=== PATIENT | female | born 1955 | race Caucasian/White ===

== ENCOUNTER 2017-07-11 23:31 | Inpatient (IN) | payer OTHER ==
[~2017-07-11] VITALS: Ht 152.4 cm; Wt 82.6 kg
[~2017-07-11 23:31] MED LIST: GLIP10TA3 PO; HYDR-4446 PO; IBUP400T99 PO; LANTUS SUBQ; LEVO0.074 PO; METF100028 PO; PANT40PK PO; PRAV20TA2 PO; RANI-287 PO
--- NOTE | 2017-07-11 23:31 | NUR ---
Patient was BIBA and taken to bed 03 via gurney per EMS.
[2017-07-11 23:39] VITALS: BP 152/74
[2017-07-11] MEDS ORDERED: NACL 0.9% 500 ML IV ONE ×2 (23:40)
[2017-07-11] MEDS ORDERED: IBUPROFEN 800 MG TAB ONE (23:53)
[2017-07-11] MEDS ORDERED: ACETAMINOPHEN EXTRA STRENGTH 500 MG TAB ONE (23:54)
[2017-07-11] MEDS ORDERED: ASPI81CT89 PO (23:59)
[2017-07-11] MEDS ORDERED: OMEP20TC24 PO (23:59)
[2017-07-11] MEDS ORDERED: MELO7.5T11 PO (23:59)
[2017-07-11] MEDS ORDERED: LORA10TA19 PO (23:59)
[2017-07-11] MEDS ORDERED: VITD1000 PO (23:59)
[2017-07-11] MEDS ORDERED: VAS5 PO (23:59)
--- NOTE | 2017-07-12 00:04 | NUR ---
Dr. Huff evaluating patient at bedside.
--- NOTE | 2017-07-12 00:05 | NUR ---
PATIENT PRESENTS TO ED BIBA C/O LEFT ARM PAIN THAT IS SHARP. PT DENIES ANY TRAUMA TO THE ARM. PT DENIES N/V/D; SKIN IS PINK/WARM/DRY; AAOX4 WITH EVEN AND STEADY GAIT; LUNGS CLEAR BL; HR EVEN AND REGULAR; PT DENIES ANY FEVER, CP, SOB, OR COUGH AT THIS TIME; PATIENT STATES PAIN OF 7/10 AT THIS TIME; VSS; PATIENT POSITIONED FOR COMFORT; HOB ELEVATED; BEDRAILS UP X2; BED DOWN. ER MD MADE AWARE OF PT STATUS.
[2017-07-12] MEDS ORDERED: fentaNYL 0.05 MG/ML VIAL IVP ONE (00:35)
[2017-07-12 00:38] LABS: HEMATOCRIT 39.1 % (36-48); HEMOGLOBIN 12.8 g/dL (12.0-16.0); MEAN CORPUSCULAR HEMOGLOBIN 29 pg (27-31); MEAN CORPUSCULAR HGB CONC 33 g/dL (33-37); MEAN CORPUSCULAR VOLUME 89 fL (80-94); PLATELET COUNT (AUTO) 182 K/uL (140-450); RED BLOOD CELL COUNT(AUTO) 4.38 MIL/uL (4.20-5.40); RED CELL DISTRIBUTION WIDTH 13.8 % (11.6-13.7); WHITE BLOOD COUNT (AUTO) 12.8 K/uL (4.8-10.8)
[2017-07-12 00:39] LABS: EOSINOPHILS % (MANUAL) 3 % (0-4); LYMPHOCYTES % (MANUAL) 14 % (20-46); MONOCYTES % (MANUAL) 7 % (5-12)
[2017-07-12 00:41] LABS: PROTHROMBIN TIME 10.6 secs (10.8-13.4)
--- NOTE | 2017-07-12 00:41 | NUR ---
Patient was taken to CT via wheelchair per tech.
[2017-07-12 00:49] LABS: ANION GAP 12.7 (8-16); CARBON DIOXIDE 23.2 mmol/L (21-32); CREATININE 1.1 mg/dL (0.6-1.3); POTASSIUM 3.9 mmol/L (3.5-5.1)
[2017-07-12 00:54] LABS: ALBUMIN 3.2 g/dL (3.4-5.0); TOTAL BILIRUBIN 0.5 mg/dL (0.0-1.0)
--- NOTE | 2017-07-12 00:54 | NUR ---
Patient back from CT via wheelchair per tech.
[2017-07-12] MEDS ORDERED: NACL 0.9% 2,000 ML IV ONE (01:05)
[2017-07-12] MEDS ORDERED: LEVOFLOXACIN 500 MG/D5W PREMIX 100 ML IV ONE (01:05)
[2017-07-12 01:10] LABS: APPEARANCE,URINE HAZY (CLEAR); BILIRUBIN,URINE NEGATIVE (NEGATIVE); BLOOD, URINE TRACE-I (NEGATIVE); COLOR,URINE YELLOW (YELLOW); LEUKOCYTE ESTERASE ,URINE 1+ (NEGATIVE); NITRITE, URINE POSITIVE (NEGATIVE); PH,URINE 5.5 (5.0-9.0); UGLUCOSE NEGATIVE (NEGATIVE)
[2017-07-12 01:19] LABS: RBC,URINE 0-5 (RARE) /HPF (0-5); WBC,URINE TOO MANY TO COUNT /HPF (0-5)
--- NOTE | 2017-07-12 02:08 | NUR ---
Patient will be admitted to care of DR PARIS. Admited to Med/Surg. Will go to room 107B. Belongings list completed. Report to VON.
[2017-07-12 02:15] VITALS: BP 104/64
--- NOTE | 2017-07-12 02:15 | NUR ---
ADMITTED A 61F FROM ER. CAME BY LISA, ACCOMPANIED BY GEORGIE, DAUGHTER IN LAW. AWAKE,ALERT AND ORIENTED X4. ARABIC SPEAKING. WITH NO C/O OF ANY DISCOMFORT NOR PAIN NOTED. AFEBRILE 99.3 TEMP. SKIN INTACT. WITH HL ON THE LT AC#20. CLEAR AND PATENT. PLACED COMFORTABLY IN BED. ORIENTED TO HOSPITAL ROUTINES. CALL LIGHT WITHIN EASY REACH, BED TO BE ON LOW POSITION. INSTRUCTED TO CALL FOR ANY ASSISTANCE. VERBALIZED UNDERSTANDING. PT ON MS. WILL HAVE TO CALL MD FOR ADMIT ORDERS.
--- NOTE | 2017-07-12 02:30 | NUR ---
CHECKED IN ON PT, PT RESTING COMFORTABLY IN BED. NO S/S OF DISTRESS NOTED. ALL SAFETY PRECAUTIONS MET, CALL LIGHT WITHIN REACH WILL CONTINUE TO MONITOR. Addendum: 07/13/17 at 0127 by Aydee Bragg RN WRONG TIME: 07/12/17 @ 0151
[2017-07-12] MEDS ORDERED: HYDROcodone/APAP 5/325 MG 1 TAB TAB PO PRN (02:55)
[2017-07-12] MEDS ORDERED: ACETAMINOPHEN 325 MG TAB PO PRN (02:55)
[2017-07-12] MEDS ORDERED: DEXTROSE 50% 50 ML SYR IVP PRN (02:55)
--- NOTE | 2017-07-12 02:58 | NUR ---
PAGED DR. Haseeb PARIS. ABLE TO TALKED TO HIM ON HIS CELL PHONE GAVE ADMIT WITH ORDERS.
[2017-07-12] MEDS: NACL 0.9% 1,000 ML IV SCH ×2 (04:06→16:15)
--- NOTE | 2017-07-12 04:06 | NUR ---
IVF NS @75 ML PER STARTED ON THE LT FA#20. INFUSING WELL.
[2017-07-12] MEDS: BLOOD GLUCOSE MONITORING 1 DEV DEV FS SCH ×5 (06:41→21:36)
--- NOTE | 2017-07-12 06:41 | NUR ---
BLOOD SUGAR THUS WAS CHECKED RESULT 140. NO COVERAGE NEEDED.
[2017-07-12 06:43] LABS: HEMATOCRIT 37.4 % (36-48); HEMOGLOBIN 12.5 g/dL (12.0-16.0); MEAN CORPUSCULAR HEMOGLOBIN 30 pg (27-31); MEAN CORPUSCULAR HGB CONC 33 g/dL (33-37); MEAN CORPUSCULAR VOLUME 89 fL (80-94); PLATELET COUNT (AUTO) 181 K/uL (140-450); RED BLOOD CELL COUNT(AUTO) 4.19 MIL/uL (4.20-5.40); RED CELL DISTRIBUTION WIDTH 13.9 % (11.6-13.7); WHITE BLOOD COUNT (AUTO) 13.6 K/uL (4.8-10.8)
[2017-07-12 07:14] LABS: ANION GAP 11.7 (8-16); CARBON DIOXIDE 22.1 mmol/L (21-32); POTASSIUM 3.8 mmol/L (3.5-5.1)
--- NOTE | 2017-07-12 07:14 | NUR ---
PATIENT HAS BEEN SCREENED AND CATEGORIZED MODERATE NUTRITION RISK. PATIENT WILL BE SEEN WITHIN 3-5 DAYS OF ADMISSION. 07/14/17-07/16/17 BOBO JUSTIN MS, RDN
--- NOTE | 2017-07-12 07:20 | NUR ---
ENDORSED PT IN STABLE CONDITION TO AM NURSE.
--- NOTE | 2017-07-12 07:25 | NUR ---
RECEIVED PATIENT REPORT FROM NIGHT NURSE AT BEDSIDE. PATIENT IS THAI SPEAKING, AAOX4 AND SHOWS NO S/S OF ACUTE DISTRESS ON ROOM AIR. PATIENT STATED HEADACHE OF 3/10. WILL MEDICATE WITH TYLENOL 650 MG PO. PATIENT SKIN IS INTACT. IV NOTED ON THE LEFT FA WITH IVF'S INFUSING WELL. PATIENT WAS EXPLAINED HOW TO USE THE CALL LIGHT FOR ASSISTANCE AND POC FOR TODAY. PATIENT VERBALIZED UNDERSTANDING. THE BED IS LOWERED WITH CALL LIGHT WITHIN REACH. WILL CONTINUE TO MONITOR.
[2017-07-12 07:53] LABS: BASOPHILS % (MANUAL) 0 % (0-2); EOSINOPHILS % (MANUAL) 1 % (0-4); LYMPHOCYTES % (MANUAL) 12 % (20-46); MONOCYTES % (MANUAL) 5 % (5-12)
[2017-07-12 08:00] VITALS: BP 117/52
--- NOTE | 2017-07-12 08:15 | NUR ---
ADMINISTERED TYLENOL 650 MG PO FOR HEADACHE. WILL REASSESS PAIN.
--- NOTE | 2017-07-12 09:15 | NUR ---
PATIENT DENIES PAIN AND SOB. PATIENT SHOWS NO S/S OF ACUTE DISTRESS ON ROOM AIR. THE BED IS LOWERED WITH CALL LIGHT WITHIN REACH.
--- NOTE | 2017-07-12 11:00 | NUR ---
PATIENT IS TAKING SHOWER. PATIENT AMB BACK TO ROOM AND SHOWS NO S/S OF ACUTE DISTRESS.
--- NOTE | 2017-07-12 11:45 | NUR ---
PATIENT HAS VISITORS AT BEDSIDE. PATIENT SHOWS NO S/S OF ACUTE DISTRESS ON ROOM AIR. WILL CONTINUE TO MONITOR.
--- NOTE | 2017-07-12 14:45 | NUR ---
PATIENT IS SLEEPING AND SHOWS NO S/S OF ACUTE DISTRESS. THE BED IS LOWERED WITH CALL LIGHT WITHIN REACH.
[2017-07-12 16:00] VITALS: BP 113/62
--- NOTE | 2017-07-12 16:00 | NUR ---
PATIENT HAS FAMILY AT BEDSIDE AND SHOWS NO S/S OF ACUTE DISTRESS ON ROOM AIR, AAOX4 AND DENIES PAIN. THE BED IS LOWERED WITH CALL LIGHT WITHIN REACH.
[2017-07-12] MEDS: INSULIN LISPRO SLIDING SCALE 100 UNITS/ML VIAL SUBQ PRN ×2 (17:43→21:37)
--- NOTE | 2017-07-12 19:15 | NUR ---
GAVE PATIENT REPORT AT BEDSIDE TO NIGHT NURSE. PATIENT ENDORSED IN STABLE CONDITION.
--- NOTE | 2017-07-12 19:16 | NUR ---
RECEIVED REPORT FROM DAY NURSE, PT IN STABLE CONDITION, PT IS AAOX4, PT IS ON RA. IV TO L FA 20 G INFUSING WELL, PATENT AND INTACT. INITIAL ASSESSMENT DONE, PLAN OF CARE DISCUSSED WITH PT AND FAMILY AT THE BEDSIDE, ALL SAFETY PRECAUTIONS MET, CALL LIGHT WITHIN REACH, WILL CONTINUE TO MONITOR.
--- NOTE | 2017-07-12 20:08 | NUR ---
LAB CALLED FOR BLOOD CULTURE RESULT POSITIVE GRAM NEGATIVE DIPLO COCCI . PAGED DR. PARIS, LEFT MESSAGE. WAITING FOR CALL BACK.
--- NOTE | 2017-07-12 20:59 | NUR ---
PAGED EARLIER DR. RUFFIN FOR RESULT. DR. ALLRED CLINICAL NURSING PROFESSOR . CALLED BACK. MADE AWARE OF THE GRAM NEGATIVE DIPLO COCCI RESULT OF BLOOD CULTURE. HE JUST ASKED WHAT ANTIBIOTICS PT HAS. ON LEVAQUIN IVPB. NO NEW ORDER MADE.
[2017-07-12] MEDS ORDERED: LEVOFLOXACIN 250 MG/D5 PREMIX 50 ML IV SCH (21:00)
--- NOTE | 2017-07-12 21:30 | NUR ---
PTS DUE MEDICATIONS GIVEN. PT TOLERATED WELL. ALL SAFETY PRECAUTIONS MET, CALL LIGHT WITHIN REACH. WILL CONTINUE TO MONITOR.
--- NOTE | 2017-07-12 22:20 | NUR ---
LAB CALLED AGAIN @1363 FOR NEW RESULT OF BLOOD CULTURE WHICH IS GRAM NEGATIVE RODS. PAGED DR. ALLRED. CALLED BACK AND MADE AWARE. NO NEW ORDER MADE.
[2017-07-13] VITALS: BP 115/71
--- NOTE | 2017-07-13 00:30 | NUR ---
CHECKED IN ON PT. PTS VITALS ARE STABLE, NO S/S OF DISTRESS NOTED. PT RESTING COMFORTABLY IN BED. ALL SAFETY PRECAUTIONS MET, CALL LIGHT WITHIN REACH, WILL CONTINUE TO MONITOR.
[2017-07-13] MEDS ORDERED: LEVOFLOXACIN 500 MG/D5W PREMIX 100 ML IV SCH (01:00)
--- NOTE | 2017-07-13 01:20 | NUR ---
SEQUENTIAL COMPRESSION DEVICE MACHINE APPLIED TO BOTH LONNY LOWER LEGS. PT MADE AWARE OF THE BENEFITS FROM THE MACHINE. VERBALIZED UNDERSTANDING.
--- NOTE | 2017-07-13 02:30 | NUR ---
CHECKED IN ON PT. PT RESTING COMFORTABLY IN BED. NO S/S OF DISTRESS NOTED. ALL SAFETY PRECAUTIONS MET. CALL LIGHT WITHIN REACH, WILL CONTINUE TO MONITOR.
--- NOTE | 2017-07-13 04:30 | NUR ---
CHECKED IN ON PT, PT RESTING COMFORTABLY IN BED NO S/S OF DISTRESS NOTED. ALL SAFETY PRECAUTIONS MET, CALL LIGHT WITHIN REACH, WILL CONTINUE TO MONITOR.
[2017-07-13] MEDS: NACL 0.9% 1,000 ML IV SCH (05:35)
[2017-07-13 06:09] LABS: BASOPHILS # (AUTO) 0.3 K/uL (0.00-0.22); BASOPHILS % (AUTO) 3.6 % (0.0-2.0); EOSINOPHILS # (AUTO) 0.3 K/uL (0-0.4); EOSINOPHILS % (AUTO) 2.8 % (0.0-4.0); HEMATOCRIT 38.4 % (36-48); HEMOGLOBIN 12.8 g/dL (12.0-16.0); LYMPHOCYTES # (AUTO) 2.6 K/uL (2.5-16.5); LYMPHOCYTES % (AUTO) 27.9 % (20.5-51.1); MEAN CORPUSCULAR HEMOGLOBIN 30 pg (27-31); MEAN CORPUSCULAR HGB CONC 33 g/dL (33-37); MEAN CORPUSCULAR VOLUME 90 fL (80-94); MONOCYTES # (AUTO) 1.1 K/uL (0.8-1.0); MONOCYTES % (AUTO) 11.8 % (1.7-9.3); NEUTROPHILS # (AUTO) 5.1 K/uL (1.8-7.7); NEUTROPHILS % (AUTO) 53.9 % (42.2-75.2); PLATELET COUNT (AUTO) 179 K/uL (140-450); RED BLOOD CELL COUNT(AUTO) 4.27 MIL/uL (4.20-5.40)
[2017-07-13] MEDS: BLOOD GLUCOSE MONITORING 1 DEV DEV FS SCH (06:17)
[2017-07-13] MEDS: INSULIN LISPRO SLIDING SCALE 100 UNITS/ML VIAL SUBQ PRN (06:27)
--- NOTE | 2017-07-13 06:39 | NUR ---
CHECKED IN ON PT, PT RESTING COMFORTABLY IN BED NO S/S OF DISTRESS NOTED. ALL SAFETY PRECAUTIONS MET, CALL LIGHT WITHIN REACH, WILL CONTINUE TO MONITOR.
--- NOTE | 2017-07-13 07:30 | NUR ---
RECEIVED PATIENT REPORT AT BEDSIDE. PATIENT AWAKE, ALERT AND ORIENTED. NO S/S OF DISTRESS NOTED. DENIES PAIN. BED LOWERED WITH CALL LIGHT WITHIN REACH. WILL CONTINUE TO MONITOR
--- NOTE | 2017-07-13 07:30 | NUR ---
ENDORSED PLAN OF CARE TO AM NURSE FOR CONTINUITY OF CARE, PT IN STABLE CONDITION, NO S/S OF DISTRESS NOTED.
[2017-07-13 07:59] LABS: WHITE BLOOD COUNT (AUTO) 9.4 K/uL (4.8-10.8)
[2017-07-13 08:00] VITALS: BP 135/69
[2017-07-13] MEDS ORDERED: CLINICAL MONITORING MC SCH (09:00)
[2017-07-13] MEDS ORDERED: LEVO750T2 PO (10:29)
[2017-07-13 10:33] LABS: ANION GAP 11.1 (8-16); CARBON DIOXIDE 25.1 mmol/L (21-32); CREATININE 0.9 mg/dL (0.6-1.3); POTASSIUM 4.2 mmol/L (3.5-5.1)
--- NOTE | 2017-07-13 10:49 | NUR ---
PATIENT DISCHARGED TO HOME. DISCHARGE PRESCRIPTION AND DISCHARGE INSTRUCTIONS GIVEN. PATIENT VERBALIZED UNDERSTANDING. IV LINE DISCONTINUED. PATIENT LEFT WITH ALL HER DISCHARGE PAPERS AND BELONGINGS. PATIENT LEFT IN STABLE CONDITION
--- NOTE | 2017-07-14 07:19 | NUR ---
RETRO REVIEW FAXED TO [facility] [phone] PHONE [phone] SEB
== END 2017-07-13 10:47 | disposition home or self-care (01) | DRG 720 ==
LOC: MED 23:31 → MTU 07-12 03:06
PROVIDERS: ADMIT Internal Medicine Nephrology; ATTEND Internal Medicine Nephrology
DX: A41.51 Sepsis due to Escherichia coli [E. coli] (principal); E87.8 Other disorders of electrolyte and fluid balance, not elsewhere classified; I10 Essential (primary) hypertension; N39.0 Urinary tract infection, site not specified; E11.9 Type 2 diabetes mellitus without complications; E66.9 Obesity, unspecified; Z68.35 Body mass index [BMI] 35.0-35.9, adult; E03.9 Hypothyroidism, unspecified; K21.9 Gastro-esophageal reflux disease without esophagitis
CPT/HCPCS: 36415; 70450; 71010; 72125; 80048; 80053; 81001; 82948; 83605; 83880; 84443; 84484; 85025; 85610; 85730; 87040; 87081; 87086; 87186; 93005; 96361; 96365; 96375; 99285; J1956; J3010; J7030

== ENCOUNTER 2023-02-22 22:19 | Inpatient (IN) | payer OTHER ==
[~2023-02-22] VITALS: Ht 149.9 cm; Wt 85.3 kg
[~2023-02-22 22:19] MED LIST changes: +AMOX-1000 PO; +BACL10TA4 PO; +CHOL100084 PO; +ENAL5TAB48 PO; +FOLI1TAB90 PO; +FOS70 PO; +GABA300C PO; -GLIP10TA3 PO; -HYDR-4446 PO; -IBUP400T99 PO; -LANTUS SUBQ; -LEVO0.074 PO; +LEVO0.114 PO; +LIP80 PO; +MELO7.5T11 PO; +METF-1274 PO; +MEX2.5 PO; -PANT40PK PO; -PRAV20TA2 PO; -RANI-287 PO; +SITA25TA3 PO; +TRAM-748 PO
[2023-02-22 22:32] VITALS: BP 122/63
[2023-02-22 23:09] LABS: APPEARANCE,URINE CLEAR (CLEAR); BILIRUBIN,URINE NEGATIVE (NEGATIVE); BLOOD, URINE 1+ (NEGATIVE); COLOR,URINE YELLOW (YELLOW); LEUKOCYTE ESTERASE ,URINE 2+ (NEGATIVE); NITRITE, URINE POSITIVE (NEGATIVE); UGLUCOSE NEGATIVE (NEGATIVE)
[2023-02-22 23:33] LABS: RBC,URINE 0-5 /HPF (0-5); WBC,URINE TOO MANY TO COUNT /HPF (0-5)
--- NOTE | 2023-02-22 23:36 | NUR ---
LONI ollected and sent to lab
--- NOTE | 2023-02-22 23:49 | NUR ---
pt to bed #7
[2023-02-23] MEDS ORDERED: NACL 0.9% 2,000 ML IV ONE (00:20)
[2023-02-23] MEDS ORDERED: cefTRIAXone 1,000 MG VIAL ONE (00:40)
[2023-02-23 00:47] LABS: BASOPHILS % (AUTO) 0.2 % (0.0-2.0); EOSINOPHILS # (AUTO) 0.1 K/uL (0-0.4); EOSINOPHILS % (AUTO) 0.4 % (0.0-4.0); HEMATOCRIT 36.7 % (36-48); HEMOGLOBIN 12.4 g/dL (12.0-16.0); LYMPHOCYTES # (AUTO) 2.9 K/uL (2.5-16.5); LYMPHOCYTES % (AUTO) 21.9 % (20.5-51.1); MEAN CORPUSCULAR HEMOGLOBIN 32 pg (27-31); MEAN CORPUSCULAR HGB CONC 34 g/dL (33-37); MEAN CORPUSCULAR VOLUME 93.6 fL (80-94); MONOCYTES % (AUTO) 15.2 % (1.7-9.3); NEUTROPHILS # (AUTO) 8.3 K/uL (1.8-7.7); NEUTROPHILS % (AUTO) 62.3 % (42.2-75.2); PLATELET COUNT (AUTO) 168 K/uL (140-450); RED BLOOD CELL COUNT(AUTO) 3.92 MIL/uL (4.20-5.40); RED CELL DISTRIBUTION WIDTH 14.5 % (11.6-13.7); WHITE BLOOD COUNT (AUTO) 13.3 K/uL (4.8-10.8)
--- NOTE | 2023-02-23 01:02 | NUR ---
Patient received on bed lying comfortably and awake. Alert and awake x4. No acute distress. No complaints of pain or discomfort. Respirations even and unlabored.
[2023-02-23 01:13] LABS: ALBUMIN 2.9 g/dL (3.4-5.0); ANION GAP 11.2 (8-16); CARBON DIOXIDE 26.3 mmol/L (21-32); CREATININE 1.3 mg/dL (0.6-1.3); POTASSIUM 3.5 mmol/L (3.5-5.1); TOTAL BILIRUBIN 0.9 mg/dL (0.0-1.0)
[2023-02-23] MEDS ORDERED: CEPH-588 PO (01:27)
[2023-02-23] MEDS ORDERED: ACET-10509 PO (01:27)
[2023-02-23] MEDS ORDERED: MORPHINE SULFATE 2 MG/ML SYR IVP STA (01:59)
--- NOTE | 2023-02-23 02:19 | NUR ---
Patient taken to CT scan via WC.
--- NOTE | 2023-02-23 03:27 | NUR ---
PT TAKEN TO BED 1
[2023-02-23] MEDS: NACL 0.9% 1,000 ML IV SCH ×3 (03:37→22:43)
--- NOTE | 2023-02-23 05:15 | NUR ---
Called daughter's number to obtain information on patient's medications, no answer. Family's phone number in facesheet is patient's cell phone number.
[2023-02-23] MEDS ORDERED: ACETAMINOPHEN 325 MG TAB ONE (06:23)
[2023-02-23] MEDS ORDERED: ACETAMINOPHEN 325 MG TAB PO ONE (06:25)
--- NOTE | 2023-02-23 07:36 | NUR ---
PT CALM AND RESTING.
--- NOTE | 2023-02-23 07:50 | NUR ---
Patient will be admitted to care of DR MORAES. Admited to TELE. Will go to [id number]. Belongings list completed. Report to MIGUEL SONI.
--- NOTE | 2023-02-23 08:00 | NUR ---
RECEIVED PATIENT FROM ED. PATIENT SEEN AWAKE ALERT AND BREATHING EQUAL CHEST EXPANSION. PLAN OF CARE STARTED.
[2023-02-23] MEDS ORDERED: guaiFENesin DM 200/20 MG-10 ML 10 ML UDC PO PRN (08:20)
[2023-02-23] MEDS ORDERED: ONDANSETRON 4 MG/2 ML VIAL IM/IVP PRN (08:20)
[2023-02-23] MEDS ORDERED: ACETAMINOPHEN 325 MG TAB PO PRN (08:20)
[2023-02-23] MEDS ORDERED: HYDROcodone/APAP 7.5/325 MG 1 TAB PO PRN (08:20)
[2023-02-23] MEDS ORDERED: ZOLPIDEM 5 MG TAB PO PRN (08:20)
[2023-02-23] MEDS ORDERED: DOCUSATE SODIUM 100 MG GELCAP PO PRN (08:20)
[2023-02-23] MEDS ORDERED: POTASSIUM CHLORIDE 10 MEQ TABER PO PRN (08:20)
[2023-02-23] MEDS: PANTOPRAZOLE 40 MG TABEC PO SCH (09:16)
--- NOTE | 2023-02-23 09:50 | NUR ---
SAW PT WAS ON OXYGEN AND DID AN ASSESSMENT. PT IS ON 2L NC HR 100 SPO2 97%. PT STATED WITHOUT THE OXYGEN SHE FEELS SOB. PT STATED SHE HAS ASTHMA BUT DOESN'T TAKE ANY TREATMENTS AT HOME. PT DID SAY SHE WEARS A CPAP AT HOME WITH A PRESSURE OF 10 WHILE SLEEPING. SONI LEO WAS TRANSLATING UPPER SORBIAN FOR ME WHILE QUESTIONS WERE ASKED. WILL CONTINUE TO MONITOR PT AND REACH OUT TO DR ABOUT CPAP MACHINE FOR NIGHT TIME.
[2023-02-23 09:55] LABS: CHOL/HDL RATIO 1.6 (1-4.5); FREE T4 (FREE THYROXINE) 1.17 ng/dL (0.76-1.46); MAGNESIUM 1.6 mg/dL (1.8-2.4); PHOSPHORUS 2.1 mg/dL (2.5-4.9); THYROID STIMULATING HORMONE 0.24 uIU/mL (0.34-3.74)
[2023-02-23 10:10] LABS: PROTHROMBIN TIME 11.6 secs (10.8-13.4)
--- NOTE | 2023-02-23 10:50 | NUR ---
PATIENT HAS BEEN SCREENED AND CATEGORIZED MODERATE NUTRITION RISK. PATIENT WILL BE SEEN WITHIN 3-5 DAYS OF ADMISSION. [facility] REFERRAL RECEIVED ON 02/23/23. REFERRAL DOES NOT MEET HIGH RISK CRITERIA PER HOSPITAL POLICY. PT WILL BE SEEN AND ASSESSED ACCORDING TO THE NUTRITION CARE POLICY. REVIEWED BY [address]
[2023-02-23 12:00] VITALS: BP 123/46
--- NOTE | 2023-02-23 14:00 | NUR ---
PATIENT NPO FOR LUNCH. ULTRASOUND OF LIVER ABDOMEN DONE.
[2023-02-23 16:00] VITALS: BP 103/49
--- NOTE | 2023-02-23 19:20 | NUR ---
ENDORED TO PM NURSE FOR CONTINUATION OF CARE.
--- NOTE | 2023-02-23 19:25 | NUR ---
RECEIVED PT FROM AM NURSE FOR CONTINUITY OF CARE. PT IS STABLE
[2023-02-23] MEDS ORDERED: MAGNESIUM OXIDE 400 MG TAB PO SCH (19:30)
[2023-02-23 20:00] VITALS: BP 121/61
--- NOTE | 2023-02-23 23:23 | NUR ---
PT TOOK OFF CPAP AND DOES NOT WANT TO WEAR IT ANYMORE. SPO2 98% HR 105 NO SOB OR RESP DISTRESS NOTED
[2023-02-24] VITALS: BP 127/67
[2023-02-24 04:00] VITALS: BP 116/64
--- NOTE | 2023-02-24 07:15 | NUR ---
ENDORSED PT TO AM NURSE FOR CONTINUITY OF CARE. PT IS STABLE
[2023-02-24 07:37] LABS: BASOPHILS # (AUTO) 0.1 K/uL (0.00-0.22); BASOPHILS % (AUTO) 0.4 % (0.0-2.0); EOSINOPHILS # (AUTO) 0.1 K/uL (0-0.4); EOSINOPHILS % (AUTO) 0.7 % (0.0-4.0); HEMATOCRIT 35.5 % (36-48); HEMOGLOBIN 11.8 g/dL (12.0-16.0); LYMPHOCYTES # (AUTO) 3.4 K/uL (2.5-16.5); LYMPHOCYTES % (AUTO) 26.1 % (20.5-51.1); MEAN CORPUSCULAR HEMOGLOBIN 31 pg (27-31); MEAN CORPUSCULAR HGB CONC 33 g/dL (33-37); MEAN CORPUSCULAR VOLUME 93.9 fL (80-94); MONOCYTES # (AUTO) 2.2 K/uL (0.8-1.0); MONOCYTES % (AUTO) 17.1 % (1.7-9.3); NEUTROPHILS # (AUTO) 7.3 K/uL (1.8-7.7); NEUTROPHILS % (AUTO) 55.7 % (42.2-75.2); PLATELET COUNT (AUTO) 161 K/uL (140-450); RED BLOOD CELL COUNT(AUTO) 3.78 MIL/uL (4.20-5.40); RED CELL DISTRIBUTION WIDTH 14.6 % (11.6-13.7); WHITE BLOOD COUNT (AUTO) 13.1 K/uL (4.8-10.8)
[2023-02-24 08:00] VITALS: BP 104/53
[2023-02-24 08:05] LABS: ANION GAP 11.3 (8-16); CARBON DIOXIDE 24.3 mmol/L (21-32); CREATININE 1.1 mg/dL (0.6-1.3); POTASSIUM 3.6 mmol/L (3.5-5.1)
[2023-02-24 08:08] LABS: T4 (THYROXINE) 6.1 ug/dL (4.5-12.0)
[2023-02-24] MEDS: PANTOPRAZOLE 40 MG TABEC PO SCH (09:15)
[2023-02-24] MEDS: MAGNESIUM OXIDE 400 MG TAB PO SCH (09:15)
[2023-02-24] MEDS: NACL 0.9% 1,000 ML IV SCH ×2 (09:16→18:18)
[2023-02-24] MEDS ORDERED: MAGNESIUM OXIDE 400 MG TAB PO SCH (10:30)
[2023-02-24] MEDS: SODIUM PHOS / POTASSIUM PHOS 1 PKT PDR PO SCH ×3 (11:06→17:10)
--- NOTE | 2023-02-24 13:41 | NUR ---
RECEIVED REPORT FROM MOLD BLOWER NURSE FOR CONTINUITY OF CARE. PT STABLE AT THIS TIME. Addendum: 02/24/23 at 1345 by Gardenia Villela RN RECEIVED REPORT AT [id number]
[2023-02-24 16:00] VITALS: BP 123/56
--- NOTE | 2023-02-24 19:10 | NUR ---
ENDORSED PT TO DIE CAST DIE MAKER NURSE FOR CONTINUITY OF CARE. PT STABLE AT THIS TIME.
--- NOTE | 2023-02-24 19:30 | NUR ---
RECEIVED REPORT FROM DAY SHIFT NURSE [place] FOR CONTINUITY OF CARE. PATIENT IS A&O X4. PATIENT IS ON RA; BREATHING IS NORMAL WITH SYMMETRICAL RISE AND FALL OF CHEST. IV IS A 20G LFA, RUNNING NS 100. PATIENT IS SITTING UP IN HIGH-[place] POSITION VISITING WITH FAMILY. BED IS IN LOWEST POSITION, WHEELS LOCKED, CALL LIGHT IN PLACE. WILL CONTINUE TO OBSERVE PATIENT.
[2023-02-24 20:00] VITALS: BP 122/50
--- NOTE | 2023-02-25 00:45 | NUR ---
PATIENT FELL ASLEEP BY 2100; BREATHING IS NORMAL WITH SYMMETRICAL RISE AND FALL OF CHEST. PATIENT WOKE UP JUST BEFORE 0030 AND REQUESTED TYLENOL FOR HEADACHE. ADMINISTERED TYLENOL TO PATIENT. MEDICATION ADMINISTERED SUCCESSFULLY WITHOUT ANY ISSUES WITH SWALLOWING. PATIENT CHOSE TO DRINK WATER FROM HER BOTTLED WATER AT BEDSIDE INSTEAD OF HER WATER FROM THE HOSPITAL [facility]. PATIENT THANKED ME AND LAID DOWN TO GO BACK TO SLEEP. BREATHING IS NORMAL WITH SYMMETRICAL RISE AND FALL OF CHEST. IV IS STILL RUNNING. WILL CONTINUE TO OBSERVE PATIENT.
[2023-02-25 04:00] VITALS: BP 123/65
[2023-02-25] MEDS: NACL 0.9% 1,000 ML IV SCH (04:55)
--- NOTE | 2023-02-25 06:00 | NUR ---
PATIENT SLEPT THROUGHOUT THE NIGHT. IV IS STILL RUNNING. BREATHING IS NORMAL WITH SYMMETRICAL RISE AND FALL OF CHEST. WILL CONTINUE TO OBSERVE PATIENT.
[2023-02-25 06:45] LABS: BASOPHILS # (AUTO) 0.1 K/uL (0.00-0.22); BASOPHILS % (AUTO) 0.4 % (0.0-2.0); EOSINOPHILS # (AUTO) 0.3 K/uL (0-0.4); EOSINOPHILS % (AUTO) 2.4 % (0.0-4.0); HEMATOCRIT 36.6 % (36-48); HEMOGLOBIN 12.3 g/dL (12.0-16.0); LYMPHOCYTES # (AUTO) 3.5 K/uL (2.5-16.5); MEAN CORPUSCULAR HEMOGLOBIN 32 pg (27-31); MEAN CORPUSCULAR HGB CONC 34 g/dL (33-37); MEAN CORPUSCULAR VOLUME 93.8 fL (80-94); MONOCYTES % (AUTO) 17.9 % (1.7-9.3); NEUTROPHILS # (AUTO) 5.4 K/uL (1.8-7.7); NEUTROPHILS % (AUTO) 48.3 % (42.2-75.2); PLATELET COUNT (AUTO) 163 K/uL (140-450); RED CELL DISTRIBUTION WIDTH 14.5 % (11.6-13.7); WHITE BLOOD COUNT (AUTO) 11.3 K/uL (4.8-10.8)
[2023-02-25 07:09] LABS: ANION GAP 11.3 (8-16); CARBON DIOXIDE 24.5 mmol/L (21-32); CREATININE 1.1 mg/dL (0.6-1.3); POTASSIUM 3.8 mmol/L (3.5-5.1)
--- NOTE | 2023-02-25 07:15 | NUR ---
PT WAS SLEEPING, STILL ON CPAP. WILL CONTINUE TO MONITOR.
--- NOTE | 2023-02-25 07:30 | NUR ---
ENDORSED TO DAY SHIFT NURSE [place] FOR CONTINUITY OF CARE. PATIENT IS STABLE.
[2023-02-25 08:00] VITALS: BP 160/76
[2023-02-25] MEDS: PANTOPRAZOLE 40 MG TABEC PO SCH (09:02)
[2023-02-25] MEDS: MAGNESIUM OXIDE 400 MG TAB PO SCH (09:02)
[2023-02-25] MEDS: SODIUM PHOS / POTASSIUM PHOS 1 PKT PDR PO SCH ×2 (09:02→13:00)
[2023-02-25] MEDS ORDERED: SYN.05 PO (09:22)
[2023-02-25] MEDS ORDERED: CEPH-588 PO (09:22)
[2023-02-25 11:42] VITALS: BP 160/76
--- NOTE | 2023-02-25 13:11 | NUR ---
RECEIVED REPORT FROM MARKETING CONSULTANT NURSE FOR CONTINUITY OF CARE. PT STABLE AT THIS TIME. Addendum: 02/25/23 at 1312 by Gardenia Villela RN RECEIVED REPORT AT [phone]
== END 2023-02-25 13:10 | disposition home or self-care (01) | DRG 872 ==
LOC: MED 22:19 → MTU 02-23 02:57
PROVIDERS: ADMIT Family Medicine; ATTEND Family Medicine
DX: A41.9 Sepsis, unspecified organism (principal); N39.0 Urinary tract infection, site not specified; E44.0 Moderate protein-calorie malnutrition; E03.9 Hypothyroidism, unspecified; N18.9 Chronic kidney disease, unspecified; Z20.822 Contact with and (suspected) exposure to COVID-19; R74.01 Elevation of levels of liver transaminase levels; E83.42 Hypomagnesemia; E78.5 Hyperlipidemia, unspecified; E83.39 Other disorders of phosphorus metabolism; E11.40 Type 2 diabetes mellitus with diabetic neuropathy, unspecified; E11.22 Type 2 diabetes mellitus with diabetic chronic kidney disease; I12.9 Hypertensive chronic kidney disease with stage 1 through stage 4 chronic kidney disease, or unspecified chronic kidney disease; Z79.4 Long term (current) use of insulin; Z68.38 Body mass index [BMI] 38.0-38.9, adult
CPT/HCPCS: 36415; 76705; 80048; 80053; 81001; 82150; 83036; 83605; 83690; 83735; 83880; 84100; 84436; 84439; 84443; 84479; 85025; 85610; 85730; 87040; 87081; 87086; 94660; 96365; 96375; 99285; J0696; J2270; J7060; Q0092

== ENCOUNTER 2023-09-26 18:52 | Inpatient (IN) | payer OTHER ==
[~2023-09-26] VITALS: Ht 142.2 cm; Wt 82.6 kg
[~2023-09-26 18:52] MED LIST changes: +ACET-10509 PO; -AMOX-1000 PO; +CEPH-588 PO; -LEVO0.114 PO; -METF100028 PO; +SYN.05 PO
[2023-09-26 19:10] VITALS: BP 146/83; PULSE 122; RESP 20; TEMP 101.9; O2SAT 96
[2023-09-26] MEDS ORDERED: NACL 0.9% 2,000 ML IV ONE (19:25)
[2023-09-26 20:30] LABS: BASOPHILS # (AUTO) 0.1 K/uL (0.00-0.22); BASOPHILS % (AUTO) 0.8 % (0.0-2.0); EOSINOPHILS # (AUTO) 0.1 K/uL (0-0.4); EOSINOPHILS % (AUTO) 0.9 % (0.0-4.0); HEMATOCRIT 36.2 % (36-48); HEMOGLOBIN 12.2 g/dL (12.0-16.0); LYMPHOCYTES # (AUTO) 2.9 K/uL (2.5-16.5); LYMPHOCYTES % (AUTO) 27.6 % (20.5-51.1); MEAN CORPUSCULAR HEMOGLOBIN 32 pg (27-31); MEAN CORPUSCULAR HGB CONC 34 g/dL (33-37); MEAN CORPUSCULAR VOLUME 96.1 fL (80-94); MONOCYTES # (AUTO) 1.6 K/uL (0.8-1.0); MONOCYTES % (AUTO) 15.7 % (1.7-9.3); NEUTROPHILS # (AUTO) 5.7 K/uL (1.8-7.7); PLATELET COUNT (AUTO) 180 K/uL (140-450); RED BLOOD CELL COUNT(AUTO) 3.76 MIL/uL (4.20-5.40); RED CELL DISTRIBUTION WIDTH 14.4 % (11.6-13.7); WHITE BLOOD COUNT (AUTO) 10.4 K/uL (4.8-10.8)
[2023-09-26 20:48] LABS: ALBUMIN 2.7 g/dL (3.4-5.0); ANION GAP 10.1 (8-16); CREATININE 1.3 mg/dL (0.6-1.3); POTASSIUM 4.1 mmol/L (3.5-5.1); TOTAL BILIRUBIN 0.9 mg/dL (0.0-1.0); TOTAL PROTEIN, SERUM 8.8 g/dL (6.4-8.2)
[2023-09-26] MEDS ORDERED: cefTRIAXone 1,000 MG VIAL ONE (21:30)
[2023-09-26 21:42] LABS: APPEARANCE,URINE CLEAR (CLEAR); BILIRUBIN,URINE NEGATIVE (NEGATIVE); BLOOD, URINE 1+ (NEGATIVE); COLOR,URINE YELLOW (YELLOW); LEUKOCYTE ESTERASE ,URINE 2+ (NEGATIVE); NITRITE, URINE POSITIVE (NEGATIVE); PROTEIN,URINE 1+ (NEGATIVE); UGLUCOSE NEGATIVE (NEGATIVE); UROBILINOGEN,URINE 0.2 EU/dL (0.2 - 1)
[2023-09-26 21:57] LABS: BACTERIA,URINE >30 (MANY) /HPF (None Seen); SQUAMOUS EPITHELIAL CELL,UR None Seen /LPF (0-3 (FEW))
[2023-09-26 21:58] LABS: MUCUS,URINE None Seen /LPF (None Seen); TRICHOMONAS,URINE None Seen /HPF (None Seen); WHITE BLOOD CELL CASTS,URINE None Seen /LPF (None Seen); YEAST,URINE None Seen /HPF (None Seen)
[2023-09-26] MEDS ORDERED: ACETAMINOPHEN 325 MG TAB PO ONE (22:50)
[2023-09-26] MEDS ORDERED: KCL 20 MEQ IN 100 mL PREMIX 200 ML IV PRN (23:35)
[2023-09-26] MEDS ORDERED: POTASSIUM CHLORIDE 10 MEQ TABER PO PRN (23:35)
[2023-09-26] MEDS ORDERED: ONDANSETRON 4 MG/2 ML VIAL IVP PRN (23:35)
[2023-09-26] MEDS ORDERED: MORPHINE SULFATE 4 MG/ML SYR IVP PRN (23:35)
[2023-09-26] MEDS ORDERED: HYDROcodone/APAP 5/325 MG 1 TAB TAB PO PRN (23:35)
[2023-09-26] MEDS ORDERED: MAG SULF 2000 MG/WATER PREMIX 50 ML IV PRN (23:35)
[2023-09-26] MEDS ORDERED: MAGNESIUM OXIDE 400 MG TAB PO PRN (23:35)
[2023-09-26] MEDS: NACL 0.9% 1,000 ML IV SCH (23:59)
[2023-09-27 07:40] LABS: BASOPHILS # (AUTO) 0.1 K/uL (0.00-0.22); BASOPHILS % (AUTO) 0.6 % (0.0-2.0); EOSINOPHILS % (AUTO) 0.1 % (0.0-4.0); HEMATOCRIT 36.7 % (36-48); HEMOGLOBIN 12.3 g/dL (12.0-16.0); LYMPHOCYTES # (AUTO) 2.4 K/uL (2.5-16.5); LYMPHOCYTES % (AUTO) 15.7 % (20.5-51.1); MEAN CORPUSCULAR HEMOGLOBIN 32 pg (27-31); MEAN CORPUSCULAR HGB CONC 34 g/dL (33-37); MEAN CORPUSCULAR VOLUME 96.2 fL (80-94); MONOCYTES # (AUTO) 2.1 K/uL (0.8-1.0); NEUTROPHILS # (AUTO) 10.4 K/uL (1.8-7.7); NEUTROPHILS % (AUTO) 69.6 % (42.2-75.2); PLATELET COUNT (AUTO) 182 K/uL (140-450); RED BLOOD CELL COUNT(AUTO) 3.82 MIL/uL (4.20-5.40); RED CELL DISTRIBUTION WIDTH 14.5 % (11.6-13.7)
[2023-09-27 07:52] LABS: ANION GAP 11.9 (8-16); CARBON DIOXIDE 25.1 mmol/L (21-32); CREATININE 1.2 mg/dL (0.6-1.3)
[2023-09-27] MEDS: ACETAMINOPHEN 325 MG TAB PO PRN ×3 (08:09→23:21)
[2023-09-27 08:20] LABS: MAGNESIUM 1.5 mg/dL (1.8-2.4); PHOSPHORUS 2.9 mg/dL (2.5-4.9)
[2023-09-27 11:09] VITALS: PULSE 92; RESP 18; O2SAT 95
[2023-09-27 12:00] VITALS: BP 122/51; PULSE 92; RESP 18; TEMP 98.6; O2SAT 95
[2023-09-27] MEDS: NACL 0.9% 1,000 ML IV SCH (12:44)
[2023-09-27] MEDS ORDERED: DEXTROSE 50% 50 ML SYR IVP PRN (15:30)
[2023-09-27 16:00] VITALS: BP 94/58; PULSE 109; RESP 20; TEMP 99.9; O2SAT 98
[2023-09-27] MEDS: BLOOD GLUCOSE MONITORING 1 DEV DEV FS SCH ×2 (16:52→20:23)
[2023-09-27] MEDS: INSULIN LISPRO SLIDING SCALE 100 UNITS/ML VIAL SUBQ PRN (17:05)
[2023-09-27 20:00] VITALS: BP 141/77; PULSE 94; RESP 18; TEMP 99.4; O2SAT 97
[2023-09-28] MEDS: NACL 0.9% 1,000 ML IV SCH ×2 (00:35→06:45)
[2023-09-28 03:46] VITALS: BP 144/67; PULSE 91; RESP 18; TEMP 98.9; O2SAT 98
[2023-09-28 06:03] LABS: ANION GAP 10.6 (8-16); CALCIUM 8.5 mg/dL (8.5-10.1); CREATININE 1.1 mg/dL (0.6-1.3); POTASSIUM 3.6 mmol/L (3.5-5.1)
[2023-09-28 06:08] LABS: MAGNESIUM 1.9 mg/dL (1.8-2.4); PHOSPHORUS 2.8 mg/dL (2.5-4.9)
[2023-09-28 06:12] LABS: BASOPHILS % (AUTO) 0.3 % (0.0-2.0); EOSINOPHILS % (AUTO) 0.3 % (0.0-4.0); HEMATOCRIT 36.8 % (36-48); HEMOGLOBIN 12.5 g/dL (12.0-16.0); LYMPHOCYTES # (AUTO) 2.7 K/uL (2.5-16.5); LYMPHOCYTES % (AUTO) 19.5 % (20.5-51.1); MEAN CORPUSCULAR HEMOGLOBIN 32 pg (27-31); MEAN CORPUSCULAR HGB CONC 34 g/dL (33-37); MEAN CORPUSCULAR VOLUME 94.9 fL (80-94); MONOCYTES # (AUTO) 1.9 K/uL (0.8-1.0); MONOCYTES % (AUTO) 13.3 % (1.7-9.3); NEUTROPHILS # (AUTO) 9.3 K/uL (1.8-7.7); NEUTROPHILS % (AUTO) 66.6 % (42.2-75.2); PLATELET COUNT (AUTO) 180 K/uL (140-450); RED BLOOD CELL COUNT(AUTO) 3.88 MIL/uL (4.20-5.40); RED CELL DISTRIBUTION WIDTH 14.2 % (11.6-13.7)
[2023-09-28] MEDS: BLOOD GLUCOSE MONITORING 1 DEV DEV FS SCH ×4 (06:54→20:09)
[2023-09-28 08:00] VITALS: BP 129/58; PULSE 94; RESP 18; TEMP 97.9; O2SAT 96
[2023-09-28] MEDS: ACETAMINOPHEN 325 MG TAB PO PRN ×2 (10:05→22:00)
[2023-09-28] MEDS: INSULIN LISPRO SLIDING SCALE 100 UNITS/ML VIAL SUBQ PRN (12:01)
[2023-09-28 16:00] VITALS: BP 134/58; PULSE 84; RESP 18; TEMP 98.3; O2SAT 98
[2023-09-28 20:00] VITALS: BP 128/45; PULSE 84; RESP 18; TEMP 99.5; O2SAT 99
[2023-09-29] MEDS: NACL 0.9% 1,000 ML IV SCH ×2 (01:56→15:38)
[2023-09-29 04:00] VITALS: BP 127/58; PULSE 73; RESP 18; TEMP 98.3; O2SAT 98
[2023-09-29 05:49] LABS: BASOPHILS # (AUTO) 0.1 K/uL (0.00-0.22); BASOPHILS % (AUTO) 0.5 % (0.0-2.0); EOSINOPHILS # (AUTO) 0.1 K/uL (0-0.4); EOSINOPHILS % (AUTO) 1.3 % (0.0-4.0); HEMATOCRIT 35.9 % (36-48); HEMOGLOBIN 12.1 g/dL (12.0-16.0); LYMPHOCYTES # (AUTO) 3.3 K/uL (2.5-16.5); MEAN CORPUSCULAR HEMOGLOBIN 32 pg (27-31); MEAN CORPUSCULAR HGB CONC 34 g/dL (33-37); MEAN CORPUSCULAR VOLUME 95.7 fL (80-94); MONOCYTES # (AUTO) 1.9 K/uL (0.8-1.0); MONOCYTES % (AUTO) 15.8 % (1.7-9.3); NEUTROPHILS # (AUTO) 6.4 K/uL (1.8-7.7); NEUTROPHILS % (AUTO) 54.4 % (42.2-75.2); PLATELET COUNT (AUTO) 181 K/uL (140-450); RED BLOOD CELL COUNT(AUTO) 3.75 MIL/uL (4.20-5.40); RED CELL DISTRIBUTION WIDTH 14.4 % (11.6-13.7); WHITE BLOOD COUNT (AUTO) 11.8 K/uL (4.8-10.8)
[2023-09-29 06:44] LABS: ANION GAP 13.7 (8-16); CALCIUM 8.4 mg/dL (8.5-10.1); CARBON DIOXIDE 23.8 mmol/L (21-32); CREATININE 1.1 mg/dL (0.6-1.3); POTASSIUM 3.5 mmol/L (3.5-5.1)
[2023-09-29 06:49] LABS: MAGNESIUM 1.7 mg/dL (1.8-2.4); PHOSPHORUS 2.2 mg/dL (2.5-4.9)
[2023-09-29] MEDS: BLOOD GLUCOSE MONITORING 1 DEV DEV FS SCH ×3 (06:49→16:49)
[2023-09-29 08:00] VITALS: PULSE 94; RESP 18; TEMP 98.3; O2SAT 96
[2023-09-29 16:00] VITALS: BP 136/61; PULSE 86; RESP 18; TEMP 98.6; O2SAT 98
[2023-09-29] MEDS ORDERED: CEPH-588 PO (16:05)
[2023-09-29] MEDS ORDERED: LACT1CAP81 PO (16:07)
== END 2023-09-29 19:00 | disposition home or self-care (01) | DRG 872 ==
LOC: MED 18:52 → MTU 23:34
PROVIDERS: ADMIT Student in an Organized Health Care Education/Training Program; ATTEND Student in an Organized Health Care Education/Training Program
DX: A41.9 Sepsis, unspecified organism (principal); N39.0 Urinary tract infection, site not specified; D84.9 Immunodeficiency, unspecified; M54.9 Dorsalgia, unspecified; E11.9 Type 2 diabetes mellitus without complications; Z20.822 Contact with and (suspected) exposure to COVID-19; I10 Essential (primary) hypertension; B96.20 Unspecified Escherichia coli [E. coli] as the cause of diseases classified elsewhere; E86.1 Hypovolemia; Z88.6 Allergy status to analgesic agent; Z88.1 Allergy status to other antibiotic agents; Z79.899 Other long term (current) drug therapy; Z79.2 Long term (current) use of antibiotics
CPT/HCPCS: 36415; 71045; 80048; 80053; 81001; 82948; 83605; 83735; 84100; 85025; 87040; 87081; 87086; 93005; 96361; 96365; 99291; J0696; J1644; J1815; J3475; J7060

== ENCOUNTER 2024-08-04 19:17 | Emergency (ER) | payer OTHER ==
[~2024-08-04] VITALS: Ht 142.2 cm; Wt 81.6 kg
[~2024-08-04 19:17] MED LIST changes: -ACET-10509 PO; +ACET500T99 PO; -BACL10TA4 PO; +LACT1CAP81 PO; -MELO7.5T11 PO
[2024-08-04 19:27] VITALS: BP 118/50; PULSE 67; RESP 17; TEMP 97.5; O2SAT 97
[2024-08-04 19:50] VITALS: BP 124/57; PULSE 74; RESP 18; O2SAT 95
[2024-08-04] MEDS ORDERED: ACET-8905 PO (20:59)
== END 2024-08-04 21:05 | disposition home or self-care (01) ==
LOC: MED 19:17
DX: S93.401A Sprain of unspecified ligament of right ankle, initial encounter (principal); E11.9 Type 2 diabetes mellitus without complications; M19.90 Unspecified osteoarthritis, unspecified site; Z90.49 Acquired absence of other specified parts of digestive tract; Z98.890 Other specified postprocedural states; Z79.899 Other long term (current) drug therapy; Z88.6 Allergy status to analgesic agent; W18.39XA Other fall on same level, initial encounter; Y92.89 Other specified places as the place of occurrence of the external cause; Y93.89 Activity, other specified; Y99.8 Other external cause status
CPT/HCPCS: 73562; 73610; 73630; 99284